=== PATIENT | female | born 1960 | race Caucasian/White ===

== ENCOUNTER 2018-08-06 07:39 | Day surgery (SDC) | payer BC ==
[~2018-08-06 07:39] MED LIST: ACETAMINOPHEN 1,000 MG/100 ML BTL IVPB ONE; CEFAZOLIN 2 Gram 2 GM/50 ML BAG IVPB ONE; RINGERS SOLUTION,LACTATED 1,000 ML IV ONE
[2018-08-06] MEDS ORDERED: SEVOFLURANE 250 ML INH ONE (07:40)
[2018-08-06] MEDS ORDERED: PROPOFOL 10 MG/ML VIAL IV ONE (07:40)
[2018-08-06] MEDS ORDERED: LIDOCAINE 2% MDV (20MG/ML) 20ML VIAL IV ONE (07:40)
[2018-08-06] MEDS ORDERED: KETAMINE HCL 100MG/1ML VIAL INJ ONE (07:40)
[2018-08-06] MEDS ORDERED: GLYCOPYRROLATE 0.2 MG/ML ML IV ONE (07:40)
[2018-08-06] MEDS ORDERED: MIDAZOLAM HCL 2MG/2ML VIAL IV ONE (07:40)
[2018-08-06] MEDS ORDERED: HYDROMORPHONE HCL 2 MG/ML VIAL IV ONE (07:40)
[2018-08-06] MEDS ORDERED: RINGERS SOLUTION,LACTATED 1,000 ML IV ONE ×3 (08:35→13:48)
[2018-08-06] MEDS ORDERED: LIDOCAINE 2% MDV (20MG/ML) 20ML VIAL SQ ONE ×2 (10:30→12:37)
[2018-08-06] MEDS ORDERED: BUPIVACAINE 0.5% (5MG/ML) PF 30ML VIAL SQ ONE ×2 (10:30→12:37)
[2018-08-06] MEDS ORDERED: ONDANSETRON HCL IV 4 MG/2 ML VIAL IVP ONE ×2 (13:25→13:33)
[2018-08-06] MEDS ORDERED: KETOROLAC 30 MG/ML VIAL IVP ONE ×2 (13:34)
--- NOTE | 2018-08-10 16:31 | Operative Note ---
DATE OF SERVICE: 08/06/2018. DATE OF SURGERY: 08/06/2018. PREOPERATIVE DIAGNOSES: 1. Torn anterior talofibular ligament, right. 2. Torn peroneal longus tendon, right. POSTOPERATIVE DIAGNOSES: 1. Torn anterior talofibular ligament, right. 2. Torn peroneal longus tendon, right. OPERATION: 1. Repair of torn anterior talofibular ligament, right, with Brostrom and with insertion of Arthrex internal brace. 2. Repair of torn peroneal longus tendon, right. SURGEON: Gilles Lares DPM. ANESTHESIA: General with preoperative and postoperative block. INDICATION: Patient had painful right ankle pain anterolaterally, as well as along the peroneal longus tendon. MRI shows torn anterior talofibular ligament and torn peroneal longus tendon. Conditions have not been responsive to previous conservative care and require surgical intervention. PROCEDURE: Patient was brought in the OR suite, placed supine upon the OR table. After successful general anesthesia was achieved, a proximal infiltrative block was given to the anterior and anterolateral aspect of the right ankle with approximately 30 mL of 1% lidocaine plain and 0.5% Marcaine plain given after alcohol prep. Padding put on right calf. Pneumatic cuff put in place. The right foot, ankle, and leg were prepped and draped in the usual sterile manner. Curvilinear incision made along the anterior distal aspect of the right fibula about 6 cm in length. Incision made without difficulty. Sharp and blunt dissection utilized to deepen the incision. All vital structures identified and retracted without difficulty. Hemostasis achieved with Bovie. Larger vessels cut, clamped, and tied off with 3-0 Vicryl. Blunt dissection taken down to the extensor retinaculum, which was sharply cut. Further blunt dissection utilized to isolate the capsule of the ankle joint. Capsulotomy performed anterolaterally along the anterior distal fibula. Clear joint fluid noted. Dissection taken down to the anterior talofibular ligament, which was very thin and torn, primarily at its fibular attachment. The talar attachment appeared to be relatively intact, but the ligament was thin. The capsule was reflected off the distal fibula. Two FiberTaks were inserted in typical fashion after drilling with a 1.6 mm drill. The fixation for the internal brace in the talus was next performed. Just anterior to articular cartilage of the ankle, a talar portion of the internal brace was inserted in typical fashion. Initially, a K-wire was placed and checked under C-arm, which noted appropriate position of the K-wire, which was directed toward the medial malleolus. This was drilled with a 4.75 mm, and the internal brace was inserted without difficulty. The FiberTaks were utilized to repair the anterior talofibular ligament, which was incorporated to the capsule in typical Brostrom fashion with the FiberTak and fiber tape that was attached to the FiberTaks. Adequate repair of the ligament and capsule was noted. This was performed in maximum eversion. After this, the fibular portion of the internal brace was inserted with a hemostat underneath the brace and with the ankle in neutral position. This was inserted in typical internal brace fashion without difficulty. Significant increase in stability noted. No anterior drawer noted. Ankle appeared to be stable. Procedure appeared to work well. The capsule was then reinforced in simple, interrupted fashion with 2-0 Vicryl. Wound flushed with copious amounts of sterile saline. During the insertion of the internal brace and the repair, the tourniquet was raised to 250 mmHg and then deflated after the repair was performed, with hyperemic flush noted to digits. Tourniquet was up for approximately 50 minutes. The incision was then lengthened to isolate the peroneal tendon. Sharp and blunt dissection utilized to deepen the incision. All vital structures identified and retracted without difficulty. Peroneal sheath noted and cut. Noted immediately was a long, longitudinal splitting of the peroneal longus tendon, approximately 3 cm in length. This was irritated to allow scarring in and debridement of hypertrophic synovium, which was minimal. The longitudinal tear was repaired in a tubular fashion with continuous, locking 3-0 Vicryl suture. No other splitting or tears of the tendon noted. Wound flushed with copious amounts of sterile saline. The peroneal tendon sheath, the subcu and deep fascia were closed in simple, interrupted fashion with 3-0 Vicryl and 4-0 Vicryl. Skin closed in subcuticular, continuous fashion with 5-0 PDS reinforced in simple, interrupted fashion with 3-0 nylon. Postoperative block given with approximately 30 mL of a 50:50 mixture of 1% lidocaine plain and 0.5% Marcaine plain. Farzaneh 4 x 4s, 4 inch Princess, and Karlo wrap were applied. Patient tolerated procedure well and was transferred to recovery room in stable condition. She is to minimize ambulation with CAM walker and crutches, keep extremity elevated, take pain medication as needed, contact me by cellphone as needed. Instructed to do range of motion exercise to her ankle and knee. She will be taking Xarelto for postoperative anticoagulation and DVT prophylaxis, particularly in light of immobilization, obesity, and questionable history of DVT. RODERICK
== END 2018-08-06 15:35 | disposition home or self-care (01) ==
LOC: SUR 07:39
PROVIDERS: ATTEND Podiatrist
DX: S93.491A Sprain of other ligament of right ankle, initial encounter (principal); S86.311A Strain of muscle(s) and tendon(s) of peroneal muscle group at lower leg level, right leg, initial encounter; R01.1 Cardiac murmur, unspecified; E03.9 Hypothyroidism, unspecified; I82.401 Acute embolism and thrombosis of unspecified deep veins of right lower extremity; E66.9 Obesity, unspecified
CPT/HCPCS: 27696; 28200; 01470; J1170; J0690; J3490; C1713; J7120